=== PATIENT | male | born 1990 | race Caucasian/White ===

== ENCOUNTER 2018-03-12 09:30 | Emergency (ER) | payer BC, MEDICAID ==
[2018-03-12 09:52] VITALS: BP 139/85
[2018-03-12] MEDS ORDERED: Sodium Chloride 0.9% 10 ML Syringe FLUSH PRN (09:59)
--- NOTE | 2018-03-12 11:12 | EDM.PDOC ---
ED HPI GENERAL MEDICAL PROBLEM - General Chief Complaint: Abdominal Pain Stated Complaint: PAIN UNDER RIBS Time Seen by Provider: 03/12/18 11:12 Source of Information: Reports: Patient History Limitations: Reports: No Limitations - History of Present Illness INITIAL COMMENTS - FREE TEXT/NARRATIVE: 28-year-old male presents for evaluation and treatment of abdominal pain. Patient reports that the abdominal pain started suddenly yesterday after eating some sun chips. He states that the pain is primarily located in the epigastric and right upper quadrant. With eating the pain is an 8 or 9 out of 10 and he describes as a bandlike pattern across his upper abdomen. Without intake he describes the pain as a constant stretching pain and rates it currently is a 3- 4 out of 10. He did take some Tylenol at 0400 this morning, currently declined any pain medication. He reports associated symptoms of nausea with eating. No fevers, chills or vomiting. He denies any urinary symptoms including no dysuria hematuria. He states his last intake was around 0400 this morning. He ate 2 pieces of lightly buttered toast numbness greatly worsened his pain. He feels a good appetite but is afraid to eat due to concerns or worsening this pain. No primary care provider. Past surgical history includes a laparoscopic appendectomy about 20 years ago. 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 03/12/18 [Rx] Past Medical History - Past Surgical History HEENT Surgical History: Reports: Adenoidectomy, Tonsillectomy GI Surgical History: Reports: Appendectomy Social & Family History - Tobacco Use Smoking Status *Q: Former Smoker Used Tobacco, but Quit: Yes Month/Year Tobacco Last Used: october 2017 - Caffeine Use Caffeine Use: Reports: Coffee, Energy Drinks Other Caffeine Use: 1 coffe or 1 energy drink a day, either one or the other - Recreational Drug Use Recreational Drug Use: No ED ROS GENERAL - Review of Systems Review Of Systems: See Below Constitutional: Denies: Fever, Chills, Decreased Appetite Respiratory: Denies: Shortness of Breath, Cough, Hemoptysis Cardiovascular: Denies: Chest Pain GI/Abdominal: Reports: Abdominal Pain (RUQ and epigastric), Nausea. Denies: Vomiting : Reports: No Symptoms. Denies: Dysuria, Hematuria Musculoskeletal: Denies: Leg Pain ED EXAM, GI/ABD - Physical Exam Exam: See Below Exam Limited By: No Limitations General Appearance: Alert, WD/WN, No Apparent Distress, Mild Distress, Obese Ears: Normal External Exam Nose: Normal Inspection Throat/Mouth: Normal Inspection, Normal Lips, Normal Voice, No Airway Compromise Respiratory/Chest: No Respiratory Distress, Lungs Clear, Normal Breath Sounds Cardiovascular: Normal Peripheral Pulses, Regular Rate, Rhythm, No Murmur GI/Abdominal Exam: Normal Bowel Sounds, Soft, Other (+ good's sign) Neurological: Alert, Oriented, Normal Cognition Psychiatric: Normal Affect, Normal Mood Skin Exam: Warm, Dry, Normal Color Course - Vital Signs Last Recorded V/S: Last Vital Signs Temp 97.3 F 03/12/18 09:47 Pulse 79 03/12/18 09:47 Resp 18 03/12/18 09:47 BP 139/85 03/12/18 09:47 Pulse Ox 97 03/12/18 09:47 - Orders/Labs/Meds Orders: Active Orders 24 hr Category Date Time Status Peripheral IV Care [RC] . DIRECTED Care 03/12/18 09:59 Active Peripheral IV Care [RC] . DIRECTED Care 03/12/18 09:59 Active Abdomen 2V AP Flat Upright [CR] Stat Exams 03/12/18 13:20 Taken Sodium Chloride 0.9% [Saline Flush] Med 03/12/18 09:59 Active 10 ml FLUSH ASDIRECTED PRN Peripheral IV Insertion Adult [OM.PC] Routine Oth 03/12/18 09:59 Ordered Medication Orders Sodium Chloride (Saline Flush) 10 ml FLUSH ASDIRECTED PRN PRN Reason: Keep Vein Open Last Admin: 03/12/18 13:36 Dose: 10 ml Labs: Laboratory Tests 03/12/18 03/12/18 03/12/18 Range/Units 10:30 10:30 10:30 WBC 5.41 (4.23-9.07) K/mm3 RBC 5.04 (4.63-6.08) M/mm3 Hgb 15.2 (13.7-17.5) gm/L Hct 44.2 (40.1-51.0) % MCV 87.7 (79.0-92.2) fl MCH 30.2 (25.7-32.2) pg MCHC 34.4 (32.2-35.5) g/dl RDW Std Deviation 41.5 (35.1-43.9) fL Plt Count 222 (163-337) K/mm3 MPV 10.4 (9.4-12.3) fl Neut % (Auto) 64.1 (34.0-67.9) % Lymph % (Auto) 25.5 (21.8-53.1) % Cobb % (Auto) 9.4 (5.3-12.2) % Eos % (Auto) 0.6 L (0.8-7.0) Baso % (Auto) 0.4 (0.1-1.2) % Neut # (Auto) 3.47 (1.78-5.38) K/mm3 Lymph # (Auto) 1.38 (1.32-3.57) K/mm3 Cobb # (Auto) 0.51 (0.30-0.82) K/mm3 Eos # (Auto) 0.03 L (0.04-0.54) K/mm3 Baso # (Auto) 0.02 (0.01-0.08) K/mm3 Sodium 142 (136-145) mEq/L Potassium 4.0 (3.5-5.1) mEq/L Chloride 107 (98-107) mEq/L Carbon Dioxide 26 (21-32) mEq/L Anion Gap 13.0 (5-15) BUN 9 (7-18) mg/dL Creatinine 0.9 (0.7-1.3) mg/dL Est Cr Clr Drug Dosing 135.63 mL/min Estimated GFR (MDRD) > 60 (>60) mL/min BUN/Creatinine Ratio 10.0 L (14-18) Glucose 94 (74-106) mg/dL Calcium 9.1 (8.5-10.1) mg/dL Total Bilirubin 0.6 (0.2-1.0) mg/dL GGT 40 (15-85) U/L AST 13 L (15-37) U/L ALT 34 (16-63) U/L Alkaline Phosphatase 79 (46-116) U/L C-Reactive Protein 0.7 (<1.0) mg/dL Total Protein 7.3 (6.4-8.2) g/dl Albumin 3.9 (3.4-5.0) g/dl Globulin 3.4 gm/dL Albumin/Globulin Ratio 1.2 (1-2) Lipase 110 (73-393) U/L Urine Color (Yellow) Urine Appearance (Clear) Urine pH (5.0-8.0) Ur Specific [place] (1.005-1.030) Urine Protein (Negative) Urine Glucose (UA) (Negative) Urine Ketones (Negative) Urine Occult Blood (Negative) Urine Nitrite (Negative) Urine Bilirubin (Negative) Urine Urobilinogen (0.2-1.0) Ur Leukocyte Esterase (Negative) Urine RBC (0-5) /hpf Urine WBC (0-5) /hpf Ur Epithelial Cells (0-5) /hpf Urine Bacteria (FEW) /hpf Urine Mucus (FEW) /hpf 03/12/18 Range/Units 11:00 WBC (4.23-9.07) K/mm3 RBC (4.63-6.08) M/mm3 Hgb (13.7-17.5) gm/L Hct (40.1-51.0) % MCV (79.0-92.2) fl MCH (25.7-32.2) pg MCHC (32.2-35.5) g/dl RDW Std Deviation (35.1-43.9) fL Plt Count (163-337) K/mm3 MPV (9.4-12.3) fl Neut % (Auto) (34.0-67.9) % Lymph % (Auto) (21.8-53.1) % Cobb % (Auto) (5.3-12.2) % Eos % (Auto) (0.8-7.0) Baso % (Auto) (0.1-1.2) % Neut # (Auto) (1.78-5.38) K/mm3 Lymph # (Auto) (1.32-3.57) K/mm3 Cobb # (Auto) (0.30-0.82) K/mm3 Eos # (Auto) (0.04-0.54) K/mm3 Baso # (Auto) (0.01-0.08) K/mm3 Sodium (136-145) mEq/L Potassium (3.5-5.1) mEq/L Chloride (98-107) mEq/L Carbon Dioxide (21-32) mEq/L Anion Gap (5-15) BUN (7-18) mg/dL Creatinine (0.7-1.3) mg/dL Est Cr Clr Drug Dosing mL/min Estimated GFR (MDRD) (>60) mL/min BUN/Creatinine Ratio (14-18) Glucose (74-106) mg/dL Calcium (8.5-10.1) mg/dL Total Bilirubin (0.2-1.0) mg/dL GGT (15-85) U/L AST (15-37) U/L ALT (16-63) U/L Alkaline Phosphatase (46-116) U/L C-Reactive Protein (<1.0) mg/dL Total Protein (6.4-8.2) g/dl Albumin (3.4-5.0) g/dl Globulin gm/dL Albumin/Globulin Ratio (1-2) Lipase (73-393) U/L Urine Color Yellow (Yellow) Urine Appearance Clear (Clear) Urine pH 6.5 (5.0-8.0) Ur Specific [place] > or = 1.030 (1.005-1.030) Urine Protein Negative (Negative) Urine Glucose (UA) Negative (Negative) Urine Ketones Negative (Negative) Urine Occult Blood Trace-intact H (Negative) Urine Nitrite Negative (Negative) Urine Bilirubin Negative (Negative) Urine Urobilinogen 0.2 (0.2-1.0) Ur Leukocyte Esterase Negative (Negative) Urine RBC 0-5 (0-5) /hpf Urine WBC 0-5 (0-5) /hpf Ur Epithelial Cells Not seen (0-5) /hpf Urine Bacteria Rare (FEW) /hpf Urine Mucus Many H (FEW) /hpf Meds: Medications Generic Name Dose Route Start Last Admin Trade Name Freq PRN Reason Stop Dose Admin Sodium Chloride 10 ml 03/12/18 09:59 03/12/18 13:36 Saline Flush FLUSH 10 ml ASDIRECTED PRN Administration Keep Vein Open Discontinued Medications Generic Name Dose Route Start Last Admin Trade Name Freq PRN Reason Stop Dose Admin Al Hydroxide/Mg Hydroxide 30 0 ml 03/12/18 13:20 03/12/18 13:34 ml/ Lidocaine HCl 15 ml PO 03/12/18 13:21 45 ml ONETIME ONE Administration Hydromorphone HCl 0.5 mg 03/12/18 12:41 03/12/18 12:50 Dilaudid IM 03/12/18 12:42 0.5 mg ONETIME ONE Administration Ondansetron HCl 4 mg 03/12/18 12:41 03/12/18 12:50 Zofran Odt PO 03/12/18 12:42 4 mg ONETIME ONE Administration Sucralfate 1 gm 03/12/18 13:20 03/12/18 13:34 Carafate PO 03/12/18 13:21 1 gm ONETIME ONE Administration - Radiology Interpretation Free Text/Narrative:: Limited abdominal ultrasound: Multiple real-time images of the upper right abdomen were obtained. Comparison: No prior ultrasound exam, previous CT abdomen and pelvis exam of 11/26. Technologist's note: Technically difficult scan due to body habitus Liver shows no focal parenchymal abnormality. Gallbladder shows no shadowing gallstones. No gallbladder wall thickening or biliary duct dilatation is seen. Right kidney shows no hydronephrosis or mass has a length of 11.9 cm. Pancreas is incompletely seen. Small portion of the visualized pancreas appears within normal limits. Portal vein shows normal hepatopedal flow. Impression: 1. No abnormality is identified on right upper quadrant abdominal ultrasound. - Re-Assessments/Exams Free Text/Narrative Re-Assessment/Exam: 03/12/18 13:21 I reviewed the labs and imaging with the patient. He is reporting some pain relief with the IM Dilaudid but is still continuing to have some pressure. I do suspect that this is likely has gallbladder but given the negative ultrasound, he may require HIDA scan for further evaluation. This also could be an ulcer. Plan will be to obtain a flat and upright ensure there is no free air I will give him some Carafate and GI cocktail and we will have him try eating. 03/12/18 14:25 I reviewed the x-ray with the patient. He states that she the GI cocktail and Carafate did seem to help with his pain. Discussed etiology of his pain. Likely his gallbladder but is also possibly an ulcer. I will have him follow-up in the clinic; in the meantime put him on some Protonix and give him some pain pills if needed. Will discharge home at this time. Discharge instructions as documented. Departure - Departure Time of Disposition: 14:30 Disposition: Home, Self-Care 01 Condition: Fair Clinical Impression: Abdominal pain Qualifiers: Abdominal location: epigastric Qualified Code(s): R10.13 - Epigastric pain - Discharge Information *PRESCRIPTION DRUG MONITORING PROGRAM REVIEWED*: No *COPY OF PRESCRIPTION DRUG MONITORING REPORT IN PATIENT MADI: No Prescriptions: Acetaminophen/oxyCODONE [Percocet 325-5 MG] 1 tab PO Q4HR PRN #20 tab PRN Reason: Pain Pantoprazole Sodium [Protonix] 20 mg PO DAILY #30 tablet.dr Instructions: Abdominal Pain, Adult, [id number] Referrals: PCP,None [Primary Care Provider] - Chery De La Paz, PROSTHETIST [Ordering Only Provider] - Forms: ED Department Discharge, ED Return to Work/School Form Additional Instructions: Note given for work. you were given medication in the ER that can affect your ability to drive and operate machinery. Do not drive or operate machinery within 10 hours of taking prescription narcotic pain medication. May take [id number] Tylenol or Motrin as needed for pain. Do not take more than 4 g of Tylenol from all sources in 1 day. Do not take more than 3200 mg of ibuprofen from all sources in 1 day. May take Percocet 1 or 2 tabs every 4 -6 hours as needed for severe pain not relieved by [id number] medications. Percocet is habit-forming, take as little as needed to control your pain. Do not drive or operate machinery within 10 hours of taking Percocet. Take the Protonix 1 tab daily as prescribed. Follow-up in the clinic this week. you may require further evaluation of your abdominal pain such as a HIDA scan or possibly an upper endoscopy. Recommend making Chery Macias or Nicolasa Vazquez at [facility]. Call [phone] to schedule with one of these providers. Recommend avoiding fatty foods or spicy foods. Recommend a bland diet such as egg whites, bananas, toast, rice, chicken breasts, etc. Please return to the ER if your symptoms change or worsen. - My Orders Last 24 Hours: My Active Orders 03/12/18 13:20 Abdomen 2V AP Flat Upright [CR] Stat - Assessment/Plan Last 24 Hours: My Active Orders 03/12/18 13:20 Abdomen 2V AP Flat Upright [CR] Stat
[2018-03-12] MEDS ORDERED: Acetaminophen/oxyCODONE 325-5 MG Tab PO ONE (12:37)
[2018-03-12] MEDS ORDERED: Ondansetron 4 MG Tab.DIS PO ONE (12:41)
[2018-03-12] MEDS ORDERED: HYDROmorphone 1 MG/ML Syringe IM ONE (12:41)
--- NOTE | 2018-03-12 13:04 | US ---
Limited abdominal ultrasound: Multiple real-time images of the upper right abdomen were obtained. Comparison: No prior ultrasound exam, previous CT abdomen and pelvis exam of 09/17/15. Technologist's note: Technically difficult scan due to body habitus Liver shows no focal parenchymal abnormality. Gallbladder shows no shadowing gallstones. No gallbladder wall thickening or biliary duct dilatation is seen. Right kidney shows no hydronephrosis or mass has a length of 11.9 cm. Pancreas is incompletely seen. Small portion of the visualized pancreas appears within normal limits. Portal vein shows normal hepatopedal flow. Impression: 1. No abnormality is identified on right upper quadrant abdominal ultrasound. Diagnostic code #1
[2018-03-12] MEDS ORDERED: Alum Hydrox/Mag Hydrox/Simeth 30 ML, Lidocaine 2% 15 ML PO ONE ×2 (13:20)
[2018-03-12] MEDS ORDERED: Sucralfate Suspension 1 GM/10 ML Cup PO ONE (13:20)
--- NOTE | 2018-03-12 17:18 | CR ---
Abdomen: Six supine and upright views of the abdomen were obtained. Comparison: Prior CT abdomen and pelvis exam of 09/17/15. Prior abdominal x-ray of 01/22/14 is available. Several loops of gas-filled small bowel are noted within the abdomen. Several areas of air fluid levels are also seen. No small bowel dilatation is seen. No free air is identified. No abnormal calcifications are seen. No free air is seen. Bony structures appear within normal limits. Impression: 1. Several loops of nondilated small bowel loops containing air-fluid levels. This does not appear obstructive at this time but could represent mild gastroenteritis if patient has correlating symptoms. 2. Abdominal x-ray is otherwise unremarkable. Diagnostic code #3
== END 2018-03-12 15:07 | disposition home or self-care (01) ==
LOC: JD.ED 09:30
DX: R10.13 Epigastric pain (principal); Z87.891 Personal history of nicotine dependence
CPT/HCPCS: 36415; 74019; 76705; 80053; 81001; 82977; 83690; 85025; 86140; 96372; 99284; A9270; J1170; J7050

== ENCOUNTER 2021-02-18 20:57 | Emergency (ER) | payer BC, MEDICAID ==
[2021-02-18 21:07] VITALS: BP 122/71; PULSE 53
[2021-02-18] MEDS ORDERED: Cefdinir 300 MG Cap PO ONE (21:45)
--- NOTE | 2021-02-18 21:55 | EDM.PDOC ---
ED HPI GENERAL MEDICAL PROBLEM - General Chief Complaint: Respiratory Problem Stated Complaint: SOB/SORE THROAT Time Seen by Provider: 02/18/21 21:18 Source of Information: Reports: Patient, RN Notes Reviewed History Limitations: Reports: No Limitations - History of Present Illness INITIAL COMMENTS - FREE TEXT/NARRATIVE: Patient is a 30-year-old male who presents to the ER for evaluation of his congestion and sore throat. Patient states that he has allergies, and usually gets a sinus infection every spring and every fall. States that he has been having issues with what he equates to a sinus infection for the last few weeks. He has had sinus congestion, drainage, and now has developed pain into his throat, and notes that he also has a very sore scratchy throat, and seems to be more hoarse than normal for him. He has not had any fevers or chills, cough, or any sort of worsening shortness of breath. He does state that he has a at home, that has a blood disease, and is immune compromised, and she did persuade him to come to the ER for evaluation. Patient states he has not been around anyone that is been sick that he is aware of. Other than the allergies, he states he is a fairly healthy individual. Right Lower Oral/Mouth Pain Score (Numeric/FACES): 2 Back Pain Score (Numeric/FACES): 2 - Related Data Allergies Allergy/AdvReac Type Severity Reaction Status Date / Time No Known Allergies Allergy Verified 03/12/18 09:52 Home Meds: Home Meds Cefdinir [Omnicef] 300 mg PO BID 10 Days #19 cap 02/18/21 [Rx] Past Medical History HEENT History: Reports: Allergic Rhinitis, Sinusitis - Past Surgical History HEENT Surgical History: Reports: Adenoidectomy, Tonsillectomy GI Surgical History: Reports: Appendectomy, Cholecystectomy, Hernia, Inguinal Social & Family History - Tobacco Use Tobacco Use Status *Q: Former Tobacco User Used Tobacco, but Quit: Yes Month/Year Tobacco Last Used: 12/2020 - Caffeine Use Caffeine Use: Reports: Coffee, Energy Drinks Other Caffeine Use: 1 coffe or 1 energy drink a day, either one or the other - Alcohol Use Days Per Week of Alcohol Use: 1 Number of Drinks Per Day: 1 Total Drinks Per Week: 1 - Recreational Drug Use Recreational Drug Use: No Drug Use in Last 12 Months: No ED ROS GENERAL - Review of Systems Review Of Systems: Comprehensive ROS is negative, except as noted in HPI. ED EXAM, GENERAL - Physical Exam Exam: See Below Exam Limited By: No Limitations General Appearance: Alert, WD/WN, No Apparent Distress Ears: Normal External Exam, Normal Canal, Hearing Grossly Normal, Normal TMs Nose: Normal Inspection Throat/Mouth: Normal Inspection, Normal Lips, Normal Teeth, Normal Gums, Normal Oropharynx (mildly erythematous) Neck: Normal Inspection, Supple, Non-Tender, Full Range of Motion Respiratory/Chest: No Respiratory Distress, Lungs Clear, Normal Breath Sounds, No Accessory Muscle Use, Chest Non-Tender Cardiovascular: Normal Peripheral Pulses, Regular Rate, Rhythm, No Edema Peripheral Pulses: 2+: Radial (L), Radial (R) Extremities: Normal Inspection, Normal Capillary Refill Neurological: Alert, Oriented, Normal Cognition, No Motor/Sensory Deficits Psychiatric: Normal Affect, Normal Mood Skin Exam: Warm, Dry, Intact, Normal Color, No Rash Course - Vital Signs Last Recorded V/S: Last Vital Signs Temp 98.3 F 02/18/21 21:04 Pulse 53 L 02/18/21 21:04 Resp 18 02/18/21 21:04 BP 122/71 02/18/21 21:04 Pulse Ox 99 02/18/21 21:04 - Orders/Labs/Meds Labs: Laboratory Tests 02/18/21 Range/Units 21:19 SARS-CoV-2 RNA (LUANA) Negative (NEGATIVE) Group A Strep (PCR) Not detected (NOT DETECT) Meds: Medications Discontinued Medications Generic Name Dose Route Start Last Admin Trade Name Freq PRN Reason Stop Dose Admin Cefdinir 300 mg 02/18/21 21:45 Cefdinir 300 Mg Cap PO 02/18/21 21:46 ONETIME ONE - Re-Assessments/Exams Free Text/Narrative Re-Assessment/Exam: 02/18/21 21:44 Patient presents to the ER for evaluation of his respiratory congestion, and sore throat. Covid swab and strep swab were obtained at the time of triage, we will go ahead and await these results however I do believe the patient might be suffering from ongoing sinus infection, and we will likely send him home with some oral antibiotics for ongoing management. 02/18/21 22:23 The patient's Covid swab was negative, and strep swab were negative. We will treat the patient as sinus infection and have him discharged home with general recommendations. Departure - Departure Time of Disposition: 22:24 Disposition: Home, Self-Care 01 Condition: Good Clinical Impression: Acute sinusitis Qualifiers: Sinusitis location: unspecified location Recurrence: not specified as recurrent Qualified Code(s): J01.90 - Acute sinusitis, unspecified - Discharge Information *PRESCRIPTION DRUG MONITORING PROGRAM REVIEWED*: No *COPY OF PRESCRIPTION DRUG MONITORING REPORT IN PATIENT MADI: No Prescriptions: Cefdinir [Omnicef] 300 mg PO BID 10 Days #19 cap Instructions: Sinusitis, Adult, [id number] Referrals: PCP,None [Primary Care Provider] - Forms: ED Department Discharge Additional Instructions: You were evaluated in the ER today for your congestion, and sore throat. Your strep screen and COVID-19 screen were negative for today's purposes. It is likely that your symptoms are related to sinusitis, which you notes that you have been having issues with, for a few weeks. Since this has been going on for few weeks, you will necessitate coverage with antibiotics, you will be placed on Omnicef, 1 tablet 2 times a day for ongoing management. This will be for 10 days. This medication was electronically sent to the [place] [facility] located in the [place] [facility]. Please continue all other medications as previously prescribed, you might want to try intranasal steroids like Nasonex, or use nasal sinus rinse like the NeilMed sinus rinses to help relieve congestion and discomfort of your nasal pa ssages. Do not hesitate to return to the ER at any time if symptoms change or worsen. Sepsis Event Note (ED) - Evaluation Sepsis Screening Result: No Definite Risk - Focused Exam Vital Signs: Vital Signs Temp Pulse Resp BP Pulse Ox 02/18/21 21:04 98.3 F 53 L 18 122/71 99
[2021-02-18 21:57] LABS: STREP A BY PCR NOT DETECTED (NOT DETECT)
[2021-02-18 22:21] LABS: CORONAVIRUS COVID-19 NAA NEGATIVE (NEGATIVE)
== END 2021-02-18 22:37 | disposition home or self-care (01) ==
LOC: JD.ED 20:57
DX: J01.90 Acute sinusitis, unspecified (principal); Z87.891 Personal history of nicotine dependence; Z20.822 Contact with and (suspected) exposure to COVID-19
CPT/HCPCS: 87635; 87651; 99283; A9270; U0002